=== PATIENT | male | born 1995 | race African-American/Black ===

== ENCOUNTER 2017-03-26 10:44 | Emergency (ER) | payer OTHER, SELFPAY ==
[2017-03-26] MEDS ORDERED: Promethazine HCl 25 MG/ML VIAL ONE (11:35)
[2017-03-26] MEDS ORDERED: Ondansetron ODT 4 MG TAB ONE (11:35)
== END 2017-03-26 12:05 | disposition home or self-care (01) ==
LOC: MADERS 10:44
DX: A08.4 Viral intestinal infection, unspecified (principal)
CPT/HCPCS: 96372; J2550; Q0162